=== PATIENT | male | born 1955 | race Caucasian/White ===

== ENCOUNTER 2017-09-29 10:30 | Emergency (ER) | payer BC ==
[2017-09-29 11:23] VITALS: BP 132/88
--- NOTE | 2017-09-29 11:58 | UC ---
Knee Pain HPI - HPI Summary HPI Summary: 10 days of worsen right knee pain and swelling --no trauma - History of Current Complaint Chief Complaint: UCLowerExtremity Stated Complaint: RIGHT KNEE PAIN Time Seen by Provider: 09/29/17 11:53 Hx Obtained From: Patient Onset/Duration: Gradual Onset, Lasting Days - 10, Still Present Pain Intensity: 5 Pain Scale Used: 0-10 Numeric Character: Aching, Stiffness Aggravating Factor(s): Movement Alleviating Factor(s): Nothing Associated Signs And Symptoms: Positive: Swelling Able to Bear Weight: Yes - Allergies/Home Medications Allergies/Adverse Reactions: Allergies Allergy/AdvReac Type Severity Reaction Status Date / Time No Known Allergies Allergy Verified 09/29/17 11:14 Home Medications: Home Medications Aspirin EC TAB* [Ecotrin EC Low Dose 81 MG*] 1 tab DAILY 09/29/17 [History Confirmed 09/29/17] PARoxetine HCL TAB* [Paxil TAB*] 5 mg DAILY 09/29/17 [History Confirmed 09/29/17 ] Ticagrelor* [Brilinta 90 MG*] 1 tab BID 09/29/17 [History Confirmed 09/29/17] PMH/Surg Hx/FS Hx/Imm Hx Previously Healthy: No Cardiovascular History: Hypertension Psychological History: Anxiety - Surgical History Surgical History: Yes Surgery Procedure, Year, and Place: surgery for glands in neck - Family History Known Family History: Positive: Hypertension Negative: Cardiac Disease, Diabetes - Social History Occupation: Retired Lives: With Family Alcohol Use: None Substance Use Type: None Smoking Status (MU): Former Smoker Amount Used/How Often: 1 cig every couple days Have You Smoked in the Last Year: No Review of Systems Constitutional: Negative Skin: Negative Eyes: Negative ENT: Negative Respiratory: Negative Cardiovascular: Negative Gastrointestinal: Negative Genitourinary: Negative Motor: Negative Neurovascular: Negative Musculoskeletal: Arthralgia - right knee, Edema - right knee Neurological: Negative Psychological: Negative Is Patient Immunocompromised?: No All Other Systems Reviewed And Are Negative: Yes Physical Exam Triage Information Reviewed: Yes Appearance: Well-Appearing, No Pain Distress, Well-Nourished Vital Signs: Initial Vital Signs Temp 97.4 F 09/29/17 11:16 Pulse 60 09/29/17 11:16 Resp 16 09/29/17 11:16 BP 132/88 09/29/17 11:16 Pulse Ox 99 09/29/17 11:16 Vital Signs Reviewed: Yes Eye Exam: Normal Eyes: Positive: Conjunctiva Clear ENT Exam: Normal ENT: Positive: Normal ENT inspection, Hearing grossly normal. Negative: Trismus , Muffled voice, Hoarse voice, Dental tenderness Dental Exam: Normal Neck exam: Normal Neck: Positive: Supple, Nontender Respiratory Exam: Normal Respiratory: Positive: Chest non-tender, No respiratory distress, No accessory muscle use Cardiovascular Exam: Normal Cardiovascular: Positive: RRR, No Murmur, Pulses Normal, Brisk Capillary Refill Musculoskeletal Exam: Normal Musculoskeletal: Positive: Strength Intact, ROM Intact, Edema @ - right knee Neurological Exam: Normal Neurological: Positive: Alert, Muscle Tone Normal Psychological Exam: Normal Skin Exam: Normal Diagnostics - Radiology No standard instances Xray Interpretation: Positive (See Comments) Radiology Interpretation Completed By: ED Physician, Radiologist - Patient Name : CIRILO COLE Medical Record#: [id number] Ordering Physician: Columba Villar NP Acct.#: [id number] : 1955 Age: 62 Sex: M Location: [facility] Exam Date : 09/29/17 1158 ADM Status: REG ER Order Information: KNEE RIGHT 4+ VWS Accession Number: [id number] CPT: 82155 INDICATION: Right knee swelling and pain. TECHNIQUE: 4 views of the right knee were obtained. FINDINGS: The bones are normal alignment. No fracture is seen. There is a large joint effusion present. Joint spaces appear maintained. IMPRESSION: LARGE JOINT EFFUSION. < Electronically signed by Jorden Banks MD in [place]> 09/29/171223 Dictated By: Jorden Banks MD Dictated Date/Time: 09/29/17 122 Transcribed Date/Time: 05/18 1222 Copy to: CC:Columba Villar NP; Elisabeth Mota MD; Geraldo García MD Imaging - [facility] [place] [facility] [address] [address] ph [phone]) ph [phone]) ph [phone]) 1 of 1 Knee Pain Course/Dx - Course Course Of Treatment: d/c and send patient to emergency department for further assessment of swollen knee joint - Differential Dx/Diagnosis Provider Diagnoses: Swollen right knee Discharge - Sign-Out/Discharge Documenting (check all that apply): Discharge/Admit/Transfer - Discharge Plan Condition: Stable Disposition: HOME Discharge Disposition Comment: discharge==plan to follow at [facility] ED Patient Education Materials: Swollen Knee Joint (ED) Referrals: Elisabeth Mota MD [Primary Care Provider] - Additional Instructions: I'm discharging her from the urgent care to go to the emergency department for further evaluation patient of your swollen right knee - Billing Disposition and Condition Condition: STABLE Disposition: Home
--- NOTE | 2017-09-29 12:27 | RAD ---
INDICATION: Right knee swelling and pain. TECHNIQUE: 4 views of the right knee were obtained. FINDINGS: The bones are normal alignment. No fracture is seen. There is a large joint effusion present. Joint spaces appear maintained. IMPRESSION: LARGE JOINT EFFUSION.
== END 2017-09-29 12:46 | disposition home or self-care (01) ==
LOC: UCCORT 10:30
DX: M25.461 Effusion, right knee (principal); M25.561 Pain in right knee; I10 Essential (primary) hypertension; Z87.891 Personal history of nicotine dependence; Z79.82 Long term (current) use of aspirin
CPT/HCPCS: 99212; G0463